=== PATIENT | male | born 1940 | race Caucasian/White ===

== ENCOUNTER → 2018-03-05 | Outpatient (CLI) | payer MEDICARE ==
[~2018-03-05] MED LIST: ALLO100T64 PO; AMLO5TAB7 PO; APIX5TAB PO; ASPI-621 PO; CARV3.1212 PO; CLOP75TA PO; FURO40TA6 PO; METF500T27 PO; POTA20TA14 PO; SIMV20TA3 PO
== END | disposition home or self-care (01) ==
LOC: RAD 08:26
PROVIDERS: ATTEND Family Medicine
DX: M19.011 Primary osteoarthritis, right shoulder (principal); M51.36 Other intervertebral disc degeneration, lumbar region; M48.061 Spinal stenosis, lumbar region without neurogenic claudication
CPT/HCPCS: 72148